=== PATIENT | female | born 1960 | race American Indian/Alaskan Native ===

== ENCOUNTER 2023-10-19 15:35 | Emergency (ER) | payer OTHER, SELFPAY ==
[2023-10-19 15:47] VITALS: BP 146/73
[2023-10-19 16:00] VITALS: BP 142/68
[2023-10-19 16:22] LABS: % Basophils 0.8 % (0-2); % Eosinophils 1.6 % (0-6); % Immature Granulocytes 0.3 % (0-0.5); % Lymphocytes 31.3 % (20.5-51.1); % Monocytes 7.5 % (1.7-9.3); % Neutrophils 58.5 % (42.2-75.2); Absolute Basophils 0.1 10^3/uL (0-0.2); Absolute Eosinophils 0.1 10^3/uL (0-0.7); Absolute Lymphocytes 2.3 10^3/uL (1.2-3.4); Absolute Monocytes 0.6 10^3/uL (0.1-0.6); Absolute Neutrophils 4.3 10^3/uL (1.4-6.5); Hematocrit 39.1 % (37.0-47.0); Hemoglobin 13.6 g/dL (12.0-16.0); Mean Corp Hgb Conc. 34.8 g/dL (33.0-37.0); Mean Corpuscular Hgb 29.4 pg (27.0-31.0); Mean Corpuscular Volume 84.6 fL (81.0-99.0); Mean Platelet Volume 10.1 fL (7.4-10.4); Nucleated Red Blood Cells % 0 %; Platelet Count 236 10^3/uL (130-400); Red Blood Cell Count 4.62 10^6/uL (4.20-5.40); White Blood Cell Count 7.4 10^3/uL (4.8-10.8)
[2023-10-19 16:39] LABS: ALT (SGPT) 30 U/L (0-35); AST (SGOT) 36 U/L (14-36); Albumin 4.3 g/dl (3.5-5.0); Alkaline Phosphatase 74 U/L (38-126); Blood Urea Nitrogen 16 mg/dl (7-17); Calcium 9.4 mg/dl (8.4-10.2); Carbon Dioxide 26 mmol/L (22-30); Chloride 105 mmol/L (98-107); Glucose 179 mg/dl (70-99); Potassium 4.7 mmol/L (3.5-5.1); Sodium 136 mmol/L (135-145); Total Bilirubin 0.7 mg/dl (0.2-1.3); Total Protein 7.2 g/dl (6.3-8.2); eGFR > 60.00
[2023-10-19 16:48] LABS: Troponin I < 0.012 ng/ml
[2023-10-19 17:02] VITALS: BP 131/67
--- NOTE | 2023-10-19 17:26 | ED.GENMED ---
History of Present Illness
General
Chief Complaint: Chest Pain
Time Seen by Provider: 10/19/23 17:26
Travel History
Have you had any contact with someone who has COVID-19?: No
Do you have any symptoms of coronavirus? Fever > 100 degrees, chills, cough, shortness of breath, sore throat, loss of taste or smell, muscle aches, or headache?: No
History of Present Illness
History of Present Illness:
HPI: Patient presents with chest pain that started around 1 PM today. The pain is far lateral to the chest wall lifts her breasts up to the inferolateral portion of the left breast. She has no shortness of breath. She is a diabetic. She tells me
she has had a stroke in the past with no residual deficits. 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 Urgent care did send her here today as she was found to have an abnormal EKG.
EXAM:
GENERAL: Well appearing in no distress
HEENT: Moist oral mucosa
CARDIOVASCULAR: No murmurs, normal heart rate and rhythm, there is marked left anterolateral chest wall tenderness
PULMONARY: No respiratory distress, breath sounds are clear and equal
ABDOMEN: Soft with no peritoneal signs, no tenderness
NEUROLOGIC: Excellent strength all extremities, no coordination deficits
PSYCHIATRIC: Appropriate mental status, normal insight and judgement
EXTREMITIES: Nontender, no edema, moves all extremities equally
SKIN: No rash, no lesions
ED COURSE:
4 PM: I initially evaluated
NUMBER AND COMPLEXITY OF PROBLEMS ADDRESSED AT THE ENCOUNTER
� Chronic conditions affecting care: Diabetes, prior stroke
� Acute Exacerbation and/or Progression of Chronic Illness: This is an acute problem
� Differential Diagnosis includes: Chest wall pain, poorly controlled high blood pressure, ACS, pneumothorax, pneumonia
AMOUNT AND/OR COMPLEXITY OF DATA TO BE REVIEWED AND ANALYZED
� I performed an independent evaluation of and my interpretation is:
EKG: Sinus 56, left axis deviation, biphasic T wave in the anterolateral leads with downgoing T waves in [address]:
X-rays: Chest x-ray is unremarkable
Laboratory Studies: CBC and chemistries unremarkable including normal initial troponin.
Other:
� Review of other/old records: No old records available for review in [facility]
� Clinical information was obtained by an independent historian: I spoke to the daughter over the phone to update her of the findings
� Prescriptions/Medications Considered but not given:
� Further testing considered but not performed:
RISK OF COMPLICATIONS AND/OR MORBIDITY OR MORTALITY OF PATIENT MANAGEMENT
� Social determinants of health affecting care: Lives at home
� Discussion with other providers:
� Escalation of care including admission/observation vs risk of discharge considered: The patient is very well appearing. The patient's pain is to the far lateral aspect of the chest wall and is markedly reproducible. 2
troponins are negative. She states that she was already told that she had an abnormal EKG by her electrical subcontractor earlier this week. She appears very comfortable on reassessment and her vital signs remained stable here. I emphasized the importance of
needing to follow-up with her electrical subcontractor.
Phy Exam
Physical Exam
Physical Exam:
See HPI
Scores
Heart Score for Chest Pain Patients
STEMI patient?: Not applicable
Course
Orders/Labs/Results
Orders:
Orders
10/19/23 15:37
ECG [Electrocardiogram (*1)] Urgent
Reason for Study: Chest Pain
EKG- Treatment ONCE
10/19/23 16:07
Complete Blood Count/With Diff Urgent
Comprehensive Metabolic Panel Urgent
Troponin I Urgent
10/19/23 17:54
Ketorolac [Toradol] 15 mg .ROUTE .STK-MED ONE
Ketorolac [Toradol] 15 mg IV NOW STA
CR Chest - 2 Views Urgent
Comment:
Reason For Exam: L pain
10/19/23 17:58
Troponin I Urgent
Abnormal Lab Results
10/19/23
16:07
Glucose 179 H mg/dl
(70-99)
10/19/23 16:07
10/19/23 16:07
Vital Signs
Initial and Last Documented VS:
Initial Vital Signs
Temp Pulse Resp BP Pulse Ox
98.0 F 58 16 146/73 98
10/19/23 15:47 10/19/23 15:47 10/19/23 15:47 10/19/23 15:47 10/19/23 15:47
Last Documented Vital Signs
Temp Pulse Resp BP Pulse Ox
98.0 F 55 17 142/69 98
10/19/23 15:47 10/19/23 18:30 10/19/23 18:30 10/19/23 18:01 10/19/23 18:30
*Critical Care Note
Total Time (30-74mins, 75-104mins- exclusive of procedures): Not Applicable
ED Attending Note
-
Portions of this chart may have been created with voice recognition software.� Occasional wrong word or��sound alike� substitutions may have occurred due to the inherent limitations of voice recognition software.
Discharge Plan
Departure
Patient Disposition: Home (Routine Discharge)
Date of Disposition: 10/19/23
Time of Disposition: 19:52
Patient with high blood pressure during this ER visit?: Yes
Discharge Problem:
Acute chest wall pain
Instructions: Chest Pain NON-[facility] Disaster Recovery Manager Follow Up
Referrals:
Trevor Reveles MD [Family Provider] -
Activity Restrictions/Additional Instructions:
Your EKG is abnormal. However 2 sets of cardiac enzymes are negative. Since you did have chest pain I strongly recommend you follow with your electrical subcontractor. You have told me that your EKG was abnormal when you saw the electrical subcontractor as well. The
rest of your other blood work looked normal other than a year blood sugar that was somewhat high. Your chest x-ray was normal. To your daughter over the phone. Return here if worse.
Interventions
Interventions:
*Risk Screen - Suicide Last Done: 10/19/23 18:39
*General Assessment Last Done: 10/19/23 18:39
*Neglect/Abuse Screening Last Done: 10/19/23 18:39
*ED COVID-19 Vaccine History Last Done: 10/19/23 18:39
ED- Cardiac Assessment Last Done: 10/19/23 18:39
[2023-10-19] MEDS: TORADOL 15 MG IV (17:59)
[2023-10-19 18:01] VITALS: BP 142/69
[2023-10-19 18:34] LABS: Troponin I < 0.012 ng/ml
== END 2023-10-19 20:00 | disposition home or self-care (01) ==
LOC: EMR 15:35
PROVIDERS: Emergency Medicine; EMERGENCY PHYSICIAN Emergency Medicine; FAMILY PHYSICIAN Internal Medicine
DX: R07.89 Other chest pain (principal); R94.31 Abnormal electrocardiogram [ECG] [EKG]; R03.0 Elevated blood-pressure reading, without diagnosis of hypertension; E11.9 Type 2 diabetes mellitus without complications; Z86.73 Personal history of transient ischemic attack (TIA), and cerebral infarction without residual deficits
CPT/HCPCS: 99284; 96374; 71046; 80053; 84484; 85025; 93005